=== PATIENT | male | born 1990 | race Caucasian/White ===

== ENCOUNTER 2024-10-21 10:34 | Outpatient (CLI) | payer BC, SELFPAY ==
--- OUTSIDE RECORDS SUMMARY | 2024-10-21 11:40 | XMS_ITS | Clinical Summary ---
Author Organization [facility] Address [address] [place] [address]. 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 Gender Identity Not on file Sexual Orientation Not on file Plan of Treatment Health Maintenance Due Date Last Done Comments Annual Physical 1992 DTaP, Tdap and Td Vaccines (6 - Tdap) 03/24/2004 03/23/2004, 11/07/1994, 05/10/1993, Additional history exists Hepatitis C 2007 COVID-19 Vaccine ( season) 2024 09/22/2021, 12/03/2020, 11/12/2020 Influenza Adult (#1) 2024 Hepatitis B Vaccines Completed 09/19/1999, 04/05/1999, 01/10/1999 HPV Vaccines Aged Out No longer eligi ble based on patient's age to complete this topic Meningococcal B Vaccine Aged Out No l onger eligible based on patient's age to complete this topic Meningococcal Vaccine Aged Out No val ricci eligible based on patient's age to complete this topic Pneumococcal Vaccine: Pediatrics (0 to 5 Years) and At-Risk Patients (6 to 64 Years) Aged Out No longer eligible based on patient's age to complete this topic RSV Immunizations Under 20 Months Aged Out No longer eligible based on patient's age to complete this topic Additional Health Concerns Infection Onset Date Last Indicated 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
--- OUTSIDE RECORDS SUMMARY | 2024-10-21 11:40 | XMS_ITS | Encounter Summary ---
Author Organization [facility] Address [address] [place] [address]. 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 Gender Identity Not on file Sexual Orientation Not on file documented as of this encounter Plan of Treatment Not on file documented as of this encounter Visit Diagnoses Not on filedocumented in this encounter Additional Health Concerns Infection Onset Date Last Indicated Resolved Time MRSA 08/17/2017 08/17/2017 MRSA 10/10/2018 10/10/2018 COVID-19 Rule Out 01/23/2022 01/23/2022 01/23/2022 12:29 PM CDT COVID-19 Confirmed 01/23/2022 01/23/2022 12:32 AM CDT documented as of this encounter Care Teams Tool Maker Relationship Specialty Start Date End Date Jitendra Wright MD [address] [place] [phone] PCP - General FAMILY PRACTICE 01/23/22 documented as of this encounter
[2024-10-21 12:18] LABS: Post Vasectomy Sperm Presence None Seen (None Seen)
== END 2024-10-21 10:35 | disposition home or self-care (01) ==
PROVIDERS: PCP Physician Assistant; Visit Provider Family Medicine
DX: Z30.09 Encounter for other general counseling and advice on contraception (principal)
CPT/HCPCS: 88160; 89321